=== PATIENT | female | born 1940 | race Caucasian/White ===

== ENCOUNTER 2022-09-02 13:34 | Emergency (ER) | payer OTHER ==
[~2022-09-02] VITALS: Ht 157.5 cm; Wt 59.0 kg
[2022-09-02 14:05] VITALS: BP_SYST 131
--- NOTE | 2022-09-02 14:08 | NUR ---
ER DR. ARROYO AT THE BEDSIDE EXAMINING PT
--- NOTE | 2022-09-02 14:27 | NUR ---
pt bib family from urgent care. CC redness irritation to right eye. Pt denies, discharge, itching and blurriness. Pt presents with macular papules to right forehead. Pt states started augmentin prescibed by eye doctor 3 days ago, side effects occurred nausea vomiting. eye doctor d/c augmentin and ordered pt to start doxycycline in three days time. skin intact, aaox4.
[2022-09-02] MEDS ORDERED: valACYclovir HCL 500 MG TABLET PO ONE (14:45)
[2022-09-02] MEDS ORDERED: VALA10002 PO ×2 (14:45→14:46)
[2022-09-02] MEDS ORDERED: cefTRIAXone 1 GM VIAL IM ONE (14:45)
--- NOTE | 2022-09-02 15:12 | NUR ---
Patient given written and verbal discharge instructions and verbalizes understanding. ER MD discussed with patient the results and treatment provided. Patient in stable condition. ID arm band removed. IV catheter removed intact and dressing applied, no active bleeding. Rx of valtrex given. Patient educated on shingles and cellulitis and to follow up with PMD. Opportunity for questions provided and answered. Medication side effect fact sheet provided.
[2022-09-02 15:13] VITALS: BP_SYST 131
[2022-09-02] MEDS ORDERED: BALANCED SALT IRRIG SOLN 15 ML IO ONE (16:00)
[2022-09-02] MEDS ORDERED: FLUORESCEIN SODIUM 1 MG OPHTHALMIC STRIP OP ONE (16:00)
== END 2022-09-02 15:12 | disposition home or self-care (01) ==
LOC: SED 13:34
DX: B02.39 Other herpes zoster eye disease (principal); H00.031 Abscess of right upper eyelid; R21 Rash and other nonspecific skin eruption; Z79.899 Other long term (current) drug therapy; J45.909 Unspecified asthma, uncomplicated
CPT/HCPCS: 99283; 96372; J0696

== ENCOUNTER 2023-05-23 09:27 | Day surgery (SDC) | payer OTHER ==
[~2023-05-23] VITALS: Ht 147.3 cm; Wt 48.5 kg
[~2023-05-23 09:27] MED LIST: CEFAZOLIN SOD 2 GM in D5W 50 ML IV ONE; VALA10002 PO
[2023-05-23] MEDS ORDERED: DEXAMETHASONE SOD PHOSPHATE 4 MG/ML VIAL ONE (14:30)
[2023-05-23] MEDS ORDERED: SEVOFLURANE 15 MIN GAS INH ONE (14:30)
[2023-05-23] MEDS ORDERED: LR 1,000 ML IV.SOLN IV ONE (14:30)
[2023-05-23] MEDS ORDERED: MIDAZOLAM HCL/PF 2 MG/2 ML SYRINGE ONE (14:30)
[2023-05-23] MEDS ORDERED: BUPIVACAINE /PF 0.25% 30 ML VIAL INJ ONE (14:30)
[2023-05-23] MEDS ORDERED: ONDANSETRON HCL 4 MG/2 ML VIAL ONE (14:30)
[2023-05-23] MEDS ORDERED: NS IRRIG SOLN 1000 ML IR ONE (14:30)
[2023-05-23] MEDS ORDERED: ACETAMINOPHEN I.V. 1000 MG 100 ML IV ONE (15:08)
[2023-05-23] MEDS ORDERED: ONDANSETRON HCL 4 MG/2 ML VIAL IVP PRN (15:30)
[2023-05-23] MEDS ORDERED: HYDROcodone/ACETAMIN 5-325 MG TAB (NORCO/ VICODIN) PO PRN (15:30)
[2023-05-23] MEDS ORDERED: D5/0.45 NS 1,000 ML IV SCH (15:30)
[2023-05-23] MEDS ORDERED: KETOROLAC TROMETHAMINE 30 MG VIAL IVP PRN (15:30)
[2023-05-23] MEDS ORDERED: HYDROmorphone 2 MG/ML VIAL IVP PRN (15:30)
[2023-05-23] MEDS ORDERED: LR 1,000 ML IV SCH (15:30)
[2023-05-23] MEDS ORDERED: HYDROmorphone 1 MG/ML INJ. CARTRIDGE IVP PRN (15:30)
[2023-05-23 17:53] VITALS: BP_SYST 126
== END 2023-05-23 17:35 | disposition home or self-care (01) ==
LOC: SDS 09:27 → SMU 09:28 → EDSTATUS 13:20 → SDS 17:35
PROVIDERS: ATTEND Colon & Rectal Surgery
DX: K40.90 Unilateral inguinal hernia, without obstruction or gangrene, not specified as recurrent (principal); J45.909 Unspecified asthma, uncomplicated; M81.0 Age-related osteoporosis without current pathological fracture; E78.5 Hyperlipidemia, unspecified; N18.30 Chronic kidney disease, stage 3 unspecified; Z96.653 Presence of artificial knee joint, bilateral; Z86.718 Personal history of other venous thrombosis and embolism; Z98.890 Other specified postprocedural states; Z79.899 Other long term (current) drug therapy
CPT/HCPCS: 49505; 87081; J3490; J0690; J1100; J3465; J2405; J7060; J7120; C1781; J0131